=== PATIENT | female | born 1980 | race African-American/Black ===

== ENCOUNTER → 2021-02-19 10:40 | Outpatient (BNVA) | payer MEDICAID, SELFPAY | PROVIDERS: PCP Internal Medicine; Visit Provider Physician Assistant | DX: E66.01 Morbid (severe) obesity due to excess calories (principal); R06.02 Shortness of breath; Z68.41 Body mass index [BMI] 40.0-44.9, adult | CPT/HCPCS: 99202 ==

== ENCOUNTER → 2021-03-04 08:12 | Outpatient (BNVA) | payer MEDICAID, SELFPAY | PROVIDERS: PCP Internal Medicine; Visit Provider Dietitian, Registered ==

== ENCOUNTER → 2021-03-12 08:09 | Outpatient (BNVA) | payer MEDICAID, SELFPAY | PROVIDERS: PCP Internal Medicine; Visit Provider Physician Assistant ==

== ENCOUNTER 2021-03-20 09:49 | Outpatient (REF) | payer MEDICAID, SELFPAY ==
[2021-03-20 10:44] LABS: MANUAL DIFF FLAG NO
[2021-03-20 10:52] LABS: Basophils Percent Auto 0.5 % (0-2); Eosinophils Absolute Auto 0.2 X10*3/uL (0.0-0.4); Eosinophils Percent Auto 4.4 % (0-4); Hematocrit 38.6 % (37-47); Imm Gran Abs Auto 0.01 X10*3/uL (0.00-0.03); Imm Gran Pct Auto 0.2 % (0.0-0.4); Mean Corpuscular HGB Conc 31.1 g/dl (31.0-35.0); Mean Corpuscular Hemoglobin 24.9 pg (27.0-33.0); Mean Corpuscular Volume 80.2 fL (80-98); Monocytes Absolute Auto 0.4 X10*3/uL (0.1-1.2); Monocytes Percent Auto 9.3 % (2-11); Neutrophils Absolute Auto 1.5 X10*3/uL (2.0-8.3); Neutrophils Percent Auto 35.6 % (45-73); Platelet Count 310 X10*3/uL (160-400); Red Blood Count 4.81 X10*6/uL (4.20-5.50); Red Cell Distribution Width 14.7 % (11.0-16.0); White Blood Count 4.1 X10*3/uL (4.8-10.8)
[2021-03-20 11:13] LABS: Estimated Average Glucose 126 mg/dL
[2021-03-20 11:27] LABS: Alanine Aminotransferase 17 U/L (0-31); Albumin Level 4.2 g/dL (3.5-5.0); Alkaline Phosphatase 53 U/L (39-117); Anion Gap 12 (12-20); Aspartate Amino Transferase 16 U/L (5-31); Bilirubin Total 0.3 mg/dL (0.0-1.0); Blood Urea Nitrogen 15 mg/dL (9-16); Calcium 9.4 mg/dL (8.4-10.2); Carbon Dioxide 24 mmol/L (22-29); Chloride 105 mmol/L (96-108); Cholesterol 165 mg/dL; Estimated Glomerular Filt Rate > 60; Glucose Fasting 98 mg/dL (60-99); HDL Cholesterol 58 mg/dL; Iron 40 mcg/dL (30-160); LDL Cholesterol Calculated 95 mg/dl; Percent Iron Saturation 9 % (15-50); Potassium 4.7 mmol/L (3.3-5.1); Sodium 136 mmol/L (135-145); Total Iron Binding Capacity 436 mcg/dL (228-428); Total Protein 7.8 g/dL (6.5-8.0); Triglycerides 63 mg/dL; Unsaturated Iron Binding 396 ug/dL
[2021-03-20 11:40] LABS: Ferritin 23 ng/mL (10-250); TSH reflex Free T4 0.38 uIU/mL (0.32-4.0); Vitamin D 25-OH Total 21.3 ng/mL (>30)
[2021-03-20 11:53] LABS: Folate 17.1 ng/mL (> or = 4.0); Vitamin B12 674 pg/mL (200-900)
[2021-03-23 11:57] LABS: Insulin Level Total 18.7 uIU/mL
[2021-03-24 08:37] LABS: Calcium (PTHI) 9.4 mg/dL (8.6-10.2); PTHI 39 pg/mL (14-64)
[2021-03-24 13:27] LABS: Zinc 57 mcg/dL (60-130)
[2021-03-25 14:56] LABS: Vitamin A 36 mcg/dL (38-98); Vitamin B1 6 nmol/L (8-30)
== END 2021-03-20 09:50 | disposition home or self-care (01) ==
LOC: HO.LAB 09:49
PROVIDERS: PCP Internal Medicine; Visit Provider Physician Assistant
DX: E66.01 Morbid (severe) obesity due to excess calories (principal); Z68.41 Body mass index [BMI] 40.0-44.9, adult
CPT/HCPCS: 36415; 80053; 80061; 82306; 82607; 82728; 82746; 83036; 83525; 83540; 83970; 84425; 84443; 84590; 84630; 85025; 86140

== ENCOUNTER 2021-03-26 09:50 | Outpatient (REF) | payer MEDICAID, SELFPAY ==
[2021-03-27 13:42] LABS: H Pylori Breath Test NOT DETECTED (NOT DETECTED)
== END 2021-03-26 09:51 | disposition home or self-care (01) ==
LOC: HO.LNP 09:50
PROVIDERS: Physician Assistant; PCP Internal Medicine; Visit Provider Physician Assistant
DX: Z11.0 Encounter for screening for intestinal infectious diseases (principal)
CPT/HCPCS: 83013; 99211

== ENCOUNTER 2021-03-30 09:43 | Outpatient (REF) | payer MEDICAID, SELFPAY ==
--- NOTE | ~2021-03-30 | XR_ITS ---
EXAMINATION: XR CHEST CLINICAL INFORMATION: Shortness of breath COMPARISON: None TECHNIQUE: 2 views of the chest were obtained. FINDINGS: No significant abnormality is noted involving the heart, lungs, mediastinum, bony thorax or soft tissues. XR/XR chest 2V IMPRESSION: Unremarkable chest exam.
--- NOTE | 2021-03-30 11:07 | ECG_ITS ---
Test Reason : SOB Blood Pressure : / mmHG Vent. Rate : 076 BPM Atrial Rate : 076 BPM P-R Int : 190 ms QRS Dur : 090 ms QT Int : 394 ms P-R-T Axes : 055 035 044 degrees QTc Int : 443 ms Normal sinus rhythm Normal ECG No previous ECGs available Referred By: Salma Yusuf Electronically Signed By:BUDDY MONTILLA MD
== END 2021-03-30 09:44 | disposition home or self-care (01) ==
LOC: HO.XRAY 09:43
PROVIDERS: Absent Provider Physician Assistant; PCP Internal Medicine; Referring Provider Internal Medicine; Visit Provider Surgery
DX: R06.02 Shortness of breath (principal); E66.01 Morbid (severe) obesity due to excess calories; Z68.41 Body mass index [BMI] 40.0-44.9, adult
CPT/HCPCS: 71046; 93005; 99212

== ENCOUNTER → 2021-05-20 08:12 | Outpatient (BNVA) | payer MEDICAID, SELFPAY | PROVIDERS: PCP Internal Medicine; Visit Provider Dietitian, Registered | DX: E66.9 Obesity, unspecified (principal); Z68.38 Body mass index [BMI] 38.0-38.9, adult | CPT/HCPCS: 97803 ==

== ENCOUNTER 2021-06-02 09:47 | Outpatient (REF) | payer MEDICAID, SELFPAY ==
[2021-06-02 11:49] LABS: Vitamin D 25-OH Total 50.2 ng/mL (>30)
[2021-06-06 12:47] LABS: Vitamin B1 10 nmol/L (8-30)
[2021-06-09 11:26] LABS: Vitamin A 35 mcg/dL (38-98)
== END 2021-06-02 09:48 | disposition home or self-care (01) ==
LOC: HO.LAB 09:47
PROVIDERS: Absent Provider Physician Assistant; PCP Internal Medicine; Visit Provider Surgery
DX: Z01.818 Encounter for other preprocedural examination (principal); E51.9 Thiamine deficiency, unspecified; E66.9 Obesity, unspecified; Z68.38 Body mass index [BMI] 38.0-38.9, adult; E55.9 Vitamin D deficiency, unspecified
CPT/HCPCS: 36415; 82306; 84425; 84590; 99212

== ENCOUNTER → 2021-06-04 08:11 | Outpatient (BNVA) | payer MEDICAID, SELFPAY | PROVIDERS: PCP Internal Medicine; Referring Provider Surgery; Visit Provider Dietitian, Registered | DX: E66.01 Morbid (severe) obesity due to excess calories (principal) | CPT/HCPCS: 97803 ==

== ENCOUNTER → 2021-07-02 10:33 | Outpatient (BNVA) | payer MEDICAID, SELFPAY | PROVIDERS: PCP Internal Medicine; Visit Provider Physician Assistant Surgical | DX: E66.9 Obesity, unspecified (principal); Z68.38 Body mass index [BMI] 38.0-38.9, adult | CPT/HCPCS: 99212 ==

== ENCOUNTER → 2021-09-14 11:04 | Outpatient (BNVA) | payer MEDICAID, SELFPAY | PROVIDERS: PCP Internal Medicine; Visit Provider Physician Assistant Surgical | DX: E66.9 Obesity, unspecified (principal); Z68.38 Body mass index [BMI] 38.0-38.9, adult | CPT/HCPCS: 99212 ==

== ENCOUNTER → 2021-10-12 08:08 | Outpatient (BNVA) | payer MEDICAID, SELFPAY | PROVIDERS: PCP Internal Medicine; Visit Provider Physician Assistant Surgical | DX: E66.9 Obesity, unspecified (principal); Z68.38 Body mass index [BMI] 38.0-38.9, adult | CPT/HCPCS: 99212 ==